=== PATIENT | male | born 1955 | race Caucasian/White ===

== ENCOUNTER 2018-05-12 13:43 | Inpatient (IN) ==
--- NOTE | 2018-05-12 16:26 | ED ---
HPI General Chief Complaint: Chest Pain Stated Complaint: Chest Pain Time Seen by Provider: 05/12/18 15:59 Source: patient and family Mode of arrival: ambulatory Limitations: no limitations History of Present Illness HPI narrative: Patient is a 63-year-old male, past medical history significant for hyperlipidemia, hypothyroidism, CAD with 2 previous stents placed approximately 7 years ago, who presents with complaint of chest pain over the last week. He states that for the last week he has had chest pain on exertion with dyspnea that improves with rest, which is exactly how he felt prior to having his stents placed. He also states that he has had some intermittent chest pain at rest now as well. No fever, chills, cough, congestion. No leg swelling or immobilization. No numbness nor weakness. MD complaint: chest pain STEMI Alert: No Onset (ago): hour(s) Duration: intermittent Onset: during exertion Pain location: substernal Severity: moderate Quality: heaviness Pain radiation: none Relieving factors: rest Exacerbating factors: exertion Associated symptoms: dyspnea Treatments prior to arrival chest pain: aspirin (81 mg) Related Data Home Medications Medication Instructions Recorded Confirmed levothyroxine 50 mcg PO DAILY 05/12/18 05/12/18 paroxetine HCl 10 mg PO HS 05/12/18 05/12/18 rosuvastatin 40 mg PO DAILY 05/12/18 05/12/18 Allergies Allergy/AdvReac Type Severity Reaction Status Date / Time No Known Allergies Allergy Unverified 05/12/18 15:51 Review of Systems ROS: all other systems reviewed are negative [facility] Medical History Medical History Depression (Acute) Hypercholesteremia (Acute) Hypothyroid (Acute) Surgical History Surgical History H/O heart artery stent (Acute) Hx of appendectomy (Acute) Social History Social History Substance History: No History of Abuse Second Hand Smoke Exposure: No Smoking Status: Former smoker How Often Do You Have a Drink Containing Alcohol: 4 or more times a week Recent Travel in [facility] within the Last 8 Weeks: No Recent Out of Country Travel within the Last 8 Weeks: No Immunization History Tetanus Immunization: >5 Years Hx Influenza Vaccine This Season: No Exam Narrative Exam Narrative: GENERAL: Well-appearing male in no acute distress SKIN: Focused skin assessment warm/dry. No rashes. HEAD: Atraumatic. Normocephalic. EYES: Pupils equal and round. No scleral icterus. No injection or drainage. ENT: No nasal bleeding or discharge. Mucous membranes pink and moist. NECK: Trachea midline. No JVD. CARDIOVASCULAR: Regular rate and rhythm. No murmur appreciated. Intact and equal peripheral pulses. RESPIRATORY: No accessory muscle use. Clear to auscultation. Breath sounds equal bilaterally. GASTROINTESTINAL: Abdomen soft, non-tender, nondistended. Hepatic and splenic margins not palpable. MUSCULOSKELETAL: No obvious deformities. No clubbing. No cyanosis. No edema. NEUROLOGICAL: Awake and alert. No obvious cranial nerve deficits. Motor grossly within normal limits. Normal speech. PSYCHIATRIC: Appropriate mood and affect; insight and judgment normal. Course Initial Documented Vital Signs Temperature 98.7 F 05/12/18 14:02 Pulse Rate 54 L 05/12/18 14:02 Respiratory Rate 18 05/12/18 14:02 Blood Pressure 139/80 05/12/18 14:02 Pulse Oximetry 100 05/12/18 14:02 Last Documented Vital Signs Temperature 98.7 F 05/12/18 14:02 Pulse Rate 50 L 05/12/18 18:07 Respiratory Rate 19 05/12/18 18:07 Blood Pressure 145/70 H 05/12/18 18:07 Pulse Oximetry 98 05/12/18 18:07 Medical Decision Making MDM Narrative Medical decision making narrative: Patient is a 63-year-old male who presents with complaints of chest pain with exertion over the last week that resolves with rest and occurs intermittently at rest as well. EKG shows some T-wave inversions and slight ST depressions in the inferior leads and I am unable to compare this to an old EKG. Labs, including initial troponin are unremarkable. I spoke to Dr Hurt, director business taxation accountant, whom recommended nitro paste and heparin drip (and NPO at midnight). I then spoke with Dr Baumann, hospitalist taxation accountant, whom agreed to admission. Medical Screen Exam Complete: Yes Emergency Medical Condition: Yes Differential Diagnosis Differential Diagnosis: Differential diagnosis includes but is not limited to NSTEMI, unstable angina, pneumothorax, pneumonia. Medical Records Medical records reviewed: Yes I reviewed the patient's medical records. Lab Data Lab results reviewed: Yes I reviewed the patient's lab results. Lab results narrative: Labs, including initial troponin, unremarkable. Result diagrams: 05/12/18 16:19 05/12/18 16:19 Lab Results 05/12/18 05/12/18 05/12/18 Range/Units 16:19 16: 16:19 WBC 7.3 (4.0-11.0) th/mm3 RBC 5.05 (4.50-5.90) mil/mm3 Hgb 14.8 (13.0-17.0) gm/dL Hct 44.8 (39.0-51.0) % MCV 88.6 (80.0-100.0) fL MCH 29.3 (27.0-34.0) pg MCHC 33.1 (32.0-36.0) % RDW 12.8 (11.6-17.2) % Plt Count 230 (150-450) th/mm3 MPV 8.2 (7.0-11.0) fL PT 10.0 (9.8-11.6) sec INR 1.0 Ratio APTT 27.4 (24.3-30.1) sec Sodium 143 (136-145) meq/L Potassium 3.8 (3.5-5.1) meq/L Chloride 108 H (98-107) meq/L Carbon Dioxide 27.8 (21.0-32.0) meq/L Anion Gap 7 (5-15) meq/L BUN 18 (7-18) mg/dL Creatinine 0.96 (0.60-1.30) mg/dL Estimated GFR 80 L (>89) mL/min Random Glucose 127 H (74-106) mg/dL Calcium 8.5 (8.5-10.1) mg/dL Troponin I Less than 0.02 L (0.02-0.05) ng/mL B-Natriuretic Peptide (0-100) pg/mL 05/12/18 Range/Units 16:19 WBC (4.0-11.0) th/mm3 RBC (4.50-5.90) mil/mm3 Hgb (13.0-17.0) gm/dL Hct (39.0-51.0) % MCV (80.0-100.0) fL MCH (27.0-34.0) pg MCHC (32.0-36.0) % RDW (11.6-17.2) % Plt Count (150-450) th/mm3 MPV (7.0-11.0) fL PT (9.8-11.6) sec INR Ratio APTT (24.3-30.1) sec Sodium (136-145) meq/L Potassium (3.5-5.1) meq/L Chloride (98-107) meq/L Carbon Dioxide (21.0-32.0) meq/L Anion Gap (5-15) meq/L BUN (7-18) mg/dL Creatinine (0.60-1.30) mg/dL Estimated GFR (>89) mL/min Random Glucose (74-106) mg/dL Calcium (8.5-10.1) mg/dL Troponin I (0.02-0.05) ng/mL B-Natriuretic Peptide 32 (0-100) pg/mL Imaging Data Attestation: I personally reviewed and interpreted this imaging study as follows : My impression: No acute cardiopulmonary process. Radiologist's impression: Chest X-Ray 05/12/18 16:13 CONCLUSION: Negative examination. ECG Data EKG Prior to Arrival: No Attestation: I personally reviewed and interpreted this ECG as follows: (Sinus bradycardia at a rate of 46 bpm. There are T-wave inversions in the inferior leads with slight ST depression in lead III and aVF.) Discharge Plan Discharge Disposition Patient Disposition: 30 Still Patient Discharge Condition Condition: Fair Discharge Details Diagnosis: Coronary artery disease involving [place] heart with unstable angina pectoris Physicians Team ED Provider: Talisha Santo Primary Care Provider: Primary Care Kathleen Cavazos Rxs /Orders / Referrals /Forms Prescriptions: No Action paroxetine HCl 20 mg Tablet 10 mg PO HS RF: 0 rosuvastatin 40 mg Tablet 40 mg PO DAILY RF: 0 levothyroxine 50 mcg Capsule 50 mcg PO DAILY RF: 0 Discharge Instructions Patient Printed Instructions: Chest Pain (ED) Status ED Status: With Doctor
--- NOTE | 2018-05-12 16:30 | XR ---
EXAM DATE: 05/12/2018 4:27 PM EDT AGE/SEX: 63 years / Male INDICATIONS: . Chest pain. CLINICAL DATA: This is the patient's initial encounter. Patient reports that signs and symptoms have been present for 1 week and indicates a pain score of 3/10. MEDICAL/SURGICAL HISTORY: Cardiovascular disease. . Cardiac stents. COMPARISON: No prior exams available for comparison. FINDINGS: PA and lateral views of the chest demonstrate the lungs to be symmetrically aerated without evidence of mass, infiltrate or effusion. The cardiomediastinal contours are unremarkable. Osseous structures are intact. CONCLUSION: Negative examination. Electronically signed by: Marvin Vail MD 05/12/2018 4:29 PM EDT
[2018-05-12 16:32] LABS: Hematocrit 44.8 % (39.0-51.0); Hemoglobin 14.8 gm/dL (13.0-17.0); Mean Corpuscular HGB Conc 33.1 % (32.0-36.0); Mean Corpuscular Hemoglobin 29.3 pg (27.0-34.0); Mean Corpuscular Volume 88.6 fL (80.0-100.0); Mean Platelet Volume 8.2 fL (7.0-11.0); Platelet Count 230 th/mm3 (150-450); Red Blood Count 5.05 mil/mm3 (4.50-5.90); Red Cell Distribution Width 12.8 % (11.6-17.2); White Blood Count 7.3 th/mm3 (4.0-11.0)
[2018-05-12 16:44] LABS: Activated Partial Thrombo Time 27.4 sec (24.3-30.1)
[2018-05-12 16:52] LABS: Anion Gap 7 meq/L (5-15); Calcium 8.5 mg/dL (8.5-10.1); Carbon Dioxide 27.8 meq/L (21.0-32.0); Chloride 108 meq/L (98-107); Glomerular Filtration Rate 80 mL/min (>89); Glucose,Random 127 mg/dL (74-106); Potassium 3.8 meq/L (3.5-5.1); Sodium 143 meq/L (136-145)
[2018-05-12 17:16] LABS: Blood Urea Nitrogen 18 mg/dL (7-18)
[2018-05-12] MEDS ORDERED: Morphine Inj 4 MG/ML Vial IV.PUSH ONE (17:55)
[2018-05-12] MEDS ORDERED: Heparin Drip 25,000 UNIT/250 ML BAG IV.CONT PRN (18:25)
[2018-05-12] MEDS ORDERED: Heparin 10,000 UNITS/10 ML Vial (for IV use) IV.PUSH STA (18:25)
--- NOTE | 2018-05-12 19:50 | P.HP ---
History of Present Illness Service: [facility] Primary Care Physician: No Primary Care Physician History of Present Illness: 63-year-old male with past medical history significant for coronary artery disease status post stent placement 2, hyperlipidemia and hypothyroidism presents to the emergency department for evaluation of chest pain. The patient reports the chest pain started approximately 1-1/2 weeks ago while he was cutting his lawn. He states he had to stop multiple times secondary to chest pain and shortness of breath. He describes the pain as a pressure/burning sensation that is substernal and radiates across to his chest and down his right arm. He denies fever/chills. No nausea/vomiting/diarrhea no lateralizing signs/symptoms. Inpatient Certification: I certify that the inpatient services were ordered in accordance with Medicare regulations governing the order. This includes certification that hospital inpatient services are reasonable and necessary and in the case of services not specified as inpatient-only under 42 CFR 419.22(n), that they are appropriately provided as inpatient services in accordance to with the 2-midnight benchmark under 43 CFR 412.3(e) Review of Systems All other systems reviewed negative except as stated in HPI PMFSH - History History Provided By: Patient - Medical History Medical History: Medical History (Last Reviewed 05/12/18 @ 16:43 by Talisha Santo MD) Depression Hypercholesteremia Hypothyroid - Surgical History Surgical History: Surgical History (Last Reviewed 05/12/18 @ 16:43 by Talisha Santo MD) H/O heart artery stent Hx of appendectomy - Family History Family History: Family History (Last Updated 05/12/18 @ 19:48 by Kimberly Sawant MD) Other Coronary artery disease Hypertension - Tobacco History Second Hand Smoke Exposure: No Tobacco Use In Past 30 Days: No Smoking Status: Former smoker - Alcohol History How Often Do You Have a Drink Containing Alcohol: 4 or more times a week - Substance Use History Substance History: No History of Abuse - Travel History Recent Travel in the [place] Within the Last 8 Weeks: No Recent Travel Out of the Country Within the Last 8 Weeks: No - Immunization History Tetanus Immunization: >5 Years Hx Influenza Vaccine This Season: No Medications and Allergies Active Medications: Active Medications Heparin Sodium (Porcine) (Heparin Inj) 2,500 units IV.PUSH UNSCH PRN PRN Reason: aPTT 25-39 Heparin Sodium/Dextrose (Heparin/D5w 25,000 U/250 Ml) 25,000 unit in 250 mls @ 0 mls/hr IV.CONT TITRATE PRN; Protocol PRN Reason: Per Protocol Last Admin: 05/12/18 18:43 Dose: 1,000 units/hr, 10 mls/hr Sodium Chloride (Ns Flush) 2 ml IV.FLUSH UNSCH PRN PRN Reason: FLUSH AFTER USING IV ACCESS Allergies Allergy/AdvReac Type Severity Reaction Status Date / Time No Known Allergies Allergy Unverified 05/12/18 15:51 Home Medications Medication Instructions Recorded Confirmed Type levothyroxine 50 mcg PO DAILY 05/12/18 05/12/18 History paroxetine HCl 10 mg PO HS 05/12/18 05/12/18 History rosuvastatin 40 mg PO DAILY 05/12/18 05/12/18 History Exam Vital signs: Vital Signs 05/12/18 14:02 05/12/18 15:55 05/12/18 15:56 Temperature 98.7 F Pulse Rate 54 L 53 L Respiratory Rate 18 17 Blood Pressure 139/80 170/88 H Pulse Oximetry 100 99 05/12/18 16:32 05/12/18 16:46 05/12/18 18:07 Temperature Pulse Rate 48 L 50 L Respiratory Rate 24 19 Blood Pressure 121/65 145/70 H Pulse Oximetry 98 98 98 05/12/18 19:35 Temperature Pulse Rate 49 L Respiratory Rate 16 Blood Pressure 169/73 H Pulse Oximetry Intake & Output 05/12/18 05/12/18 05/13/18 06:59 18:59 06:59 Weight 74.843 kg Narrative: Gen.: No acute distress Head: Normocephalic. Atraumatic. EENT: Pupils equal round and reactive to light. Nose without drainage. Airway intact. Throat without injection. Cardiovascular: Regular rate and rhythm. No murmurs, rubs or gallops. Respiratory: Lungs clear to auscultation bilaterally. No wheezes or rhonchi. Abdomen: Soft, nontender, nondistended. No peritoneal signs. Musculoskeletal: No gross deformities. No edema. Skin: No obvious rashes or erythema. Neuro: Sensory and motor grossly intact. Cranial nerves II through XII grossly intact. Results - Labs CBC & Chem 7: 05/12/18 16:19 05/12/18 16:19 Labs: Laboratory Results - last 24 hr 05/12/18 05/12/1818 16:19 16:19 16:19 WBC 7.3 RBC 5.05 Hgb 14.8 Hct 44.8 MCV 88.6 MCH 29.3 MCHC 33.1 RDW 12.8 Plt Count 230 MPV 8.2 PT 10.0 INR 1.0 APTT 27.4 Sodium 143 Potassium 3.8 Chloride 108 H Carbon Dioxide 27.8 Anion Gap 7 BUN 18 Creatinine 0.96 Estimated GFR 80 L Random Glucose 127 H Calcium 8.5 Troponin I Less than 0.02 L B-Natriuretic Peptide 05/12/18 16:19 WBC RBC Hgb Hct MCV MCH MCHC RDW Plt Count MPV PT INR APTT Sodium Potassium Chloride Carbon Dioxide Anion Gap BUN Creatinine Estimated GFR Random Glucose Calcium Troponin I B-Natriuretic Peptide 32 - Imaging Impressions Chest X-Ray 05/12/18 16:13 CONCLUSION: Negative examination. Caprini VTE Risk Assessment Caprini VTE Risk Assessment: Moderate/High Risk (score >= 2) Caprini Risk Assessment Model: Point Value = 1 Point Value = 2 Point Value = 3 Point Value = 5 Age 41-60 Minor surgery BMI > 25 kg/m2 Swollen legs Varicose veins or History of unexplained or recurrent spontaneous Oral contraceptives or hormone replacement Sepsis (< 1 month) Serious lung disease, including pneumonia (< 1 month) Abnormal pulmonary function Acute myocardial infarction Congestive heart failure (< 1 month) History of inflammatory bowel disease Medical patient at bed rest Age 61-74 Arthroscopic surgery Major open surgery (> 45 min) Laparoscopic surgery (> 45 min) Malignancy Confined to bed (> 72 hours) Immobilizing plaster cast Central venous access Age >= 75 History of VTE Family history of VTE Factor V Leiden Prothrombin [id number] Lupus anticoagulant Anticardiolipin antibodies Elevated serum homocysteine Heparin-induced thrombocytopenia Other congenital or acquired thrombophilia Stroke (< 1 month) Elective arthroplasty Hip, pelvis, or leg fracture Acute spinal cord injury (< 1 month) Prophylaxis Regimen: Total Risk Factor Score Risk Level Prophylaxis Regimen 0-1 Low Early ambulation 2 Moderate Order ONE of the following: *Sequential Compression Device (SCD) *Heparin 5000 units SQ BID 3-4 Higher Order ONE of the following medications: *Heparin 5000 units SQ TID *Enoxaparin/Lovenox 40 mg SQ daily (WT < 150 kg, CrCl > 30 mL/min) *Enoxaparin/Lovenox 30 mg SQ daily (WT < 150 kg, CrCl > 10-29 mL/min) *Enoxaparin/Lovenox 30 mg SQ BID (WT < 150 kg, CrCl > 30 mL/min) AND/OR *Sequential Compression Device (SCD) 5 or more Highest Order ONE of the following medications: *Heparin 5000 units SQ TID (Preferred with Epidurals) *Enoxaparin/Lovenox 40 mg SQ daily (WT < 150 kg, CrCl > 30 mL/min) *Enoxaparin/Lovenox 30 mg SQ daily (WT < 150 kg, CrCl > 10-29 mL/min) *Enoxaparin/Lovenox 30 mg SQ BID (WT < 150 kg, CrCl > 30 mL/min) AND *Sequential Compression Device (SCD) Assessment and Plan - Plan Assessment/plan: 1. Unstable angina EKG negative for ST segment elevations or depressions, personally reviewed Initial troponin negative ACS rule out pending; serial troponins/EKGs Heparin drip Nitro Cardiology consulted, appreciate recommendations 2. Coronary artery disease/hyperlipidemia Continue home medication FEN N.p.o. Electrolytes: Monitor and replete as needed Heparin drip
[2018-05-12 23:44] LABS: Creatine Kinase 56 U/L (39-308)
[2018-05-13 00:03] LABS: Activated Partial Thrombo Time 57.6 sec (24.3-30.1); Prothrombin Time 10.5 sec (9.8-11.6)
[2018-05-13] MEDS ORDERED: Heparin 10,000 UNITS/10 ML Vial (for IV use) IV.PUSH PRN (00:26)
[2018-05-13] MEDS ORDERED: Morphine Inj 4 MG/ML Vial IV.PUSH ONE (01:11)
[2018-05-13 04:56] LABS: Baso % (Auto) 0.4 % (0.0-2.0); Eos # (Auto) 0.2 th/mm3 (0.0-0.4); Eos % (Auto) 2.5 % (0.0-4.0); Hematocrit 43.8 % (39.0-51.0); Hemoglobin 14.6 gm/dL (13.0-17.0); Lymph # (Auto) 2.5 th/mm3 (1.0-4.8); Lymph % (Auto) 31.9 % (9.0-44.0); Mean Corpuscular HGB Conc 33.4 % (32.0-36.0); Mean Corpuscular Hemoglobin 29.5 pg (27.0-34.0); Mean Corpuscular Volume 88.3 fL (80.0-100.0); Mean Platelet Volume 8.5 fL (7.0-11.0); Mono # (Auto) 0.6 th/mm3 (0.0-0.9); Mono % (Auto) 7.4 % (0.0-8.0); Neut # (Auto) 4.5 th/mm3 (1.8-7.7); Neut % (Auto) 57.8 % (16.0-70.0); Platelet Count 211 th/mm3 (150-450); Red Blood Count 4.96 mil/mm3 (4.50-5.90); Red Cell Distribution Width 13.4 % (11.6-17.2); White Blood Count 7.7 th/mm3 (4.0-11.0)
[2018-05-13 05:24] LABS: Anion Gap 7 meq/L (5-15); Blood Urea Nitrogen 16 mg/dL (7-18); Calcium 8.6 mg/dL (8.5-10.1); Carbon Dioxide 27.7 meq/L (21.0-32.0); Chloride 108 meq/L (98-107); Glomerular Filtration Rate 86 mL/min (>89); Glucose,Random 96 mg/dL (74-106); Potassium 3.6 meq/L (3.5-5.1); Sodium 143 meq/L (136-145)
[2018-05-13 05:41] LABS: Creatine Kinase 56 U/L (39-308)
[2018-05-13] MEDS: Levothyroxine 50 MCG Tablet PO SCH (06:45)
--- NOTE | 2018-05-13 07:49 | ECG ---
Date Performed: 05/12/2018 Time Performed: 14:11:44 PTAGE: 63 years EKG: SINUS BRADYCARDIA NONSPECIFIC T-WAVE ABNORMALITY BORDERLINE ECG Since the PREVIOUS TRACING , no significant change noted DOCTOR: Raymond Aponte Interpretating Date/Time 05/13/2018 07:48:09
--- NOTE | 2018-05-13 07:49 | ECG ---
Date Performed: 05/12/2018 Time Performed: 16:29:23 PTAGE: 63 years EKG: SINUS BRADYCARDIA ST DEVIATION AND MODERATE T-WAVE ABNORMALITY, CONSIDER INFERIOR ISCHEMIA ABNORMAL ECG PREVIOUS TRACING : 05/12/2018 14.11 Since the previous tracing, no significant change noted DOCTOR: Raymond Aponte Interpretating Date/Time 05/13/2018 07:48:18
[2018-05-13] MEDS ORDERED: diazePAM 5 MG Tablet PO SCH (08:15)
[2018-05-13] MEDS ORDERED: Heparin/NS PF Inj 1,500 ML ONE (08:31)
[2018-05-13] MEDS ORDERED: Heparin 10,000 UNITS/10 ML Vial (for IV use) ONE (08:32)
[2018-05-13] MEDS ORDERED: fentaNYL Citrate Inj 100 MCG/2 ML Ampul ONE (08:32)
[2018-05-13] MEDS: Sod Chloride 0.9% Inj 1,000 ML IV.CONT SCH ×4 (09:00→17:44)
[2018-05-13] MEDS ORDERED: Acetaminophen 325 MG Tablet PO PRN (10:17)
[2018-05-13] MEDS ORDERED: Morphine Inj 4 MG/ML Vial IV.PUSH PRN (10:17)
[2018-05-13] MEDS ORDERED: oxyCODONE/Acetaminophen 10/325 Tablet PO PRN (10:17)
[2018-05-13] MEDS ORDERED: Misc Info for Pharmacy OTHER STA (10:17)
--- NOTE | 2018-05-13 10:24 | MB ---
cc: Canelo Harris MD DATE: 05/13/2018 REASON FOR CONSULTATION: Evaluation of unstable angina. HISTORY OF PRESENT ILLNESS: Ji Angel is a 63-year-old man who has known coronary artery disease. He has had a prior stent procedures 08/05/2012. He had a cardiac catheterization showing 95% proximal LAD, 80% proximal to mid right coronary artery and 50% circumflex disease. He had a 3.5 mm x 33 mm Xience stent inserted into the proximal LAD at 13 atmospheres and a 3.0 mm x 38 mm Xience stent in the right coronary artery at 12 atmospheres. I last saw him in the office 11/12/2015. He has not been compliant with followup. He has been seeing his primary care physician, Dr. Camelia Velez in [place]. He started having chest pain a week and a half ago while mowing his lawn. It was so severe he had to stop 4 times to finish mowing the lawn. It has been associated with sweating and a feeling of his heart beating hard. He has had it recur with any type of physical exertion. Finally, called the office and had gotten so far as to get blood work and an echo done, but before his appointment decided to come to the hospital and he has been admitted. PAST MEDICAL HISTORY: Includes depression, hyperlipidemia, hypothyroidism, coronary artery disease. PAST SURGICAL HISTORY: Includes appendectomy catheterization and stent procedures, right shoulder rotator cuff repair 2 years ago. MEDICATIONS: Include: 1. Aspirin 81 mg. 2. Crestor 20 mg. 3. Here, he has been also added on nitroglycerin ointment. ALLERGIES: NONE KNOWN. FAMILY HISTORY: Positive for breast cancer in his mother, cerebral hemorrhage in the father, hypertension in mother and sister and myocardial infarction in the maternal grandfather. SOCIAL HISTORY: Notable that he is retired. He is . He smoked from age 23 at age 58 off and on. REVIEW OF SYSTEMS: Notable for nausea. Remaining review of systems is negative. Specifically, he has had no bleeding of any kind. PHYSICAL EXAMINATION: GENERAL: Well-developed, well-nourished man in no acute distress. VITAL SIGNS: Charted. HEENT: Unremarkable. NECK: No JVD. No bruits. CHEST: Clear to auscultation. CARDIOVASCULAR: Normal S1, S2. He is bradycardic; regular rhythm. No murmur. ABDOMEN: Soft, nontender. No masses or organomegaly. EXTREMITIES: No clubbing, cyanosis or edema. Pulses are intact. DIAGNOSTIC DATA: 1. On his electrocardiogram shows sinus bradycardia and T-wave abnormality inferolaterally suggesting possible ischemia; these T-wave abnormalities are new from his old office visits. 2. He had an echo Doppler study in my office 05/10/2018. This shows normal left ventricular function, trivial mitral regurgitation, otherwise no valve disease. 3. His last nuclear stress test was 2015, which was normal. LABORATORY DATA: 1. CBC is normal. Chemistries: His creatinine is 0.9. His troponins are negative x3. 2. His lab work from my office was notable for an elevated LDL. I do not have the numbers in front of me, but by recollection, his LDL was 101. CONCLUSIONS: 1. Unstable angina pectoris with known coronary artery disease. 2. History of hyperlipidemia, not optimally controlled. 3. History of noncompliance with followup office visits. PLAN: The patient's symptoms sound unstable. There is no evidence for infarction, but I think we should go directly to cardiac catheterization. Informed consent has been obtained. He is n.p.o. We will plan to do a cardiac catheterization this morning with possible intervention depending the findings. MD LUCAS Ndiaye/mariella , 08:05 AM , 08:15 AM
--- NOTE | 2018-05-13 10:25 | CATHPROC ---
[employer] HIS Report Study Information Study Number Admission Scheduled Start Study Start [id number] May 12 2018 6:39PM 05/13/2018 May 13 2018 8:17AM [place] Service Cardiac Pacer/ICD Admit Source Facility Department Other [facility] - Early Intervention Specialist Physician and Clinical Staff Initial MD Harris, Canelo Nuclear Scientist Jose Calles,RN Recorder Zenia Workman,MOLD MECHANIC TECH2 Scrub Sylvia Crowder RCIS TECH2 Procedures Performed Procedure Location (Site) Vessel Name Angiogram LV LV Ventricle Coronary Angiograms LCA Left Coronary Coronary Angiograms RCA Right Coronary Drug Eluting Inflatio CIRC Dist CIRC Drug Eluting Inflatio CIRC Prox CIRC L Heart Cath Wire insertion Groin (right) Groin Equipment Time Fire Services Plumber Description Size Mfg Part Number Used/Scraped TRANSDUCER, NATALYA [id number] 08:17 RODRIGUEZ DE LUNA * Used W/CONNORCOCK *[id number] INTRODUCER SET, 09:15 [employer] FR 5 [id number] *[id number] Used MICROPUNCTURE STIFF 534-676T *[id number] 534-620T *[id number] PIGTAIL ANG. 145 INFINITI 534-652S CATHETER *[id number] *[id number] *[id number] 201340 09:58 DAIG/ST. BRIE [employer]ICAL ANGIOSEAL, FR6 VIP FR 6 Used *[id number] 09:31 MALLINCKRODT SYRINGE, ANGIOMAT 150ML 150ML *[id number] Used 2SUB [id number] 08:17 MALLINCKRODT SYRINGE, ANGIOMAT 150ML 150ML *[id number] Used 2SUB [id number] 08:17 Zeebo BLANKET,WARM AIR CCL * Used *[id number] 08:17 [employer]eebo PACK, CCL CUSTOM * Used *[id number] 08:17 Zeebo SUPPORT, ARTERIAL ADULT 17889 *[id number] Used [id number] 08:17 [employer] PACER PEN, SKIN DUAL W/ RULER * Used *[id number] 09:42 MEDTRONIC STENT, 3.0 15MM PIERCE 3.0 15MM Used *[id number] 09:49 MEDTRONIC STENT, 3.0 26MM PIERCE 3.0 26MM Used *[id number] 09:44 Copious 30 LAURYN INDEFLATOR Used *[id number] BAND, RADIAL COMPRESSION TR [id number] 10:03 [employer]ender MEDICAL 24CM Used SHORT 24 *[id number] 09:16 Copious SHEATH, FR6.5 PRELUDE 11CM FR 6.5 038ACT Used *[id number] 08:17 [employer]ious WIRE, EXCHANGE 260CM 3MMJ 260CM Used *[id number] 08:17 NAMIC MANIFOLD, 4 PORT * Used *[id number] [id number] 09:30 NAMIC TUBING, HIGH PRESSURE 20" 20" Used *[id number] 09:23 NYCOMED OMNIPAQUE, 300 MG, 50ML 50ML [id number] Used 08:17 NYCOMED OMNIPAQUE, 350 MG, 100ML 100ML [id number] Used 08:17 Koding JELCO NEEDLE 4056 *[id number] Used CATHETER, FR5 OPTITORQUE [id number] 08:59 [email or web address] MEDICAL FR 5 Used RADIAL TIG 4.0 *[id number] SHEATH, FR6 TRANSRADIAL [id number] 08:17 [employer] FR 6 Used SLENDER 10CM *[id number] Equipment Model, Serial, Lot Number and Expiration Data Description Model Number Serial Number Lot Number Expiration Date ANGIOSEAL, FR6 VIP [id number] 09-29-2018 STENT, 3.0 15MM PIERCE [id number] 11-26-2019 STENT, 3.0 26MM PIERCE [id number] 10-06-2019 History: Current Medications Medication Dosage/Unit Route Frequency Last Date/Time Taken ASA Paxil Synthroid History: Allergies Allergy Reaction No Known Allergies History: Risk Factors Family History of Hypertension Dyslipidemia Previous VA Previous Heart Failure Premature CAD Yes Yes Yes No No Prior Valve Prior PCI Prior PCIDate Prior CABG Surgery No Yes 08/05/2012 No Cerebrovascular Peripheral Artery Chronic Lung On Dialysis Diabetes Disease Disease Disease No No No No No History: Other Current Smoker Method Quit No Cigarettes 42 Years Ago Comment 1/4 PACK X 2 Labs Hgb (g/dl) Hct (%) RBC (MIL/MM3) WBC (l/cumm) Platelets (thousands) 11.60-17.00 35.00-51.00 4.00-5.90 4.00-11.00 150.00-450.00 14.6 43.8 5 7.7 143 BUN (mg/dl) Creatinine (mg/dl) BUN:Creatinine (1:x) 7.00-18.00 0.50-1.30 10.00-20.00 16 0.9 17.8 Na (meq/l) K (meq/l) 136.00-145.00 3.50-5.10 143 3.6 PT (sec) PTT (sec) INR (PTT:PT) 9.80-11.60 24.30-30.10 0.90-1.10 10.5 45.6 1 CPK (u/l) 26.00-308.00 56 Medication Medication Total Dose (Bolus/Oral) Medication Total Dosage/Unit 1% XYLOCAINE 25 mL ANGIOMAX BOLUS 14 mL EFFIENT 60 mg FENTANYL 100 mcg MORPHINE 3 mg NITRO OINTMENT 0.5 inches NTG (IC) 300 mcg RADIAL COCKTAIL 5 mL (Bolus) VERSED 3 mg Medications (Bolus/Oral) Medication Time Given Dosage/Unit Administered By Reason NITRO OINTMENT 05/13/2018 8:25:31 AM 0.5 inches Canelo Harris 0.5 inches NITRO OINTMENT given in lab by Canelo Harris via Subcutaneous. Ordered by Canelo Harris. VERSED 05/13/2018 9:02:04 AM 2 mg Stevan, Jose 2 mg VERSED given in lab by Jose Calles, RN in Right Antecubital via Peripheral IV. Ordered by Canelo Lane. FENTANYL 05/13/2018 9:03:00 AM 50 mcg Stevan, Jose 50 mcg FENTANYL given in lab by Jose Calles RN in Right Antecubital via Peripheral IV. Ordered by Canelo Mckeon. 1% XYLOCAINE 05/13/2018 9:04:03 AM 5 mL Canelo Harris 5 mL 1% XYLOCAINE given in lab by Canelo Harris in Right Radial via Subcutaneous. Ordered by Canelo Harris. RADIAL COCKTAIL 05/13/2018 9:06:00 AM 5 mL (Bolus) Canelo Harris 5 mL (Bolus) RADIAL COCKTAIL given in lab by Canelo Harris via Radial. Using [Solution Name]. Ordered by Canelo Harris. 200 NITRO,2500 HEPARIN 1% XYLOCAINE 05/13/2018 9:14:54 AM 20 mL Canelo Harris 20 mL 1% XYLOCAINE given in lab by Canelo Harris in Right Groin via Subcutaneous. Ordered by Canelo Harris. VERSED 05/13/2018 9:15:14 AM 1 mg Stevan, Jose 1 mg VERSED given in lab by Jose Calles RN in Right Antecubital via Peripheral IV. Ordered by Canelo Lane. FENTANYL 05/13/2018 9:16:25 AM 50 mcg Stevan, Jose 50 mcg FENTANYL given in lab by Jose Calles RN in Right Antecubital via Peripheral IV. Ordered by Canelo Mckeon. ANGIOMAX BOLUS 05/13/2018 9:40:56 AM 14 mL Jose Calles 14 mL ANGIOMAX BOLUS given in lab by Jose Calles RN via Peripheral IV. Ordered by Canelo Harris. NTG (IC) 05/13/2018 9:46:23 AM 150 mcg Canelo Harris 150 mcg NTG (IC) given in lab by Canelo Harris via Intra-coronary. Ordered by Canelo Harris. NTG (IC) 05/13/2018 9:53:12 AM 150 mcg Canelo Harris 150 mcg NTG (IC) given in lab by Canelo Harris via Intra-coronary. Ordered by Canelo Harris. MORPHINE 05/13/2018 10:01:16 AM 3 mg Stevan, Jose 3 mg MORPHINE given in lab by Jose Calles RN via Peripheral IV. Ordered by Canelo Harris. EFFIENT 05/13/2018 10:05:19 AM 60 mg Stevan, Jose 60 mg EFFIENT given in lab by Jose Calles RN via Oral. Ordered by Canelo Harris. Medication (Drip) Medication Time Given Dosage/Unit Concentration/Unit Diluent (ml) Solution ANGIOMAX DRIP 05/13/2018 9:42:54 AM 1.755 mg/kg/hr 250 mg 50 NaCl .9 1.755 mg/kg/hr ANGIOMAX DRIP given in lab by Jose Calles RN via Peripheral IV. Pump/Drip Flow = 33. 2 ml/hr using NaCl .9 with a concentration of 250 mg in 50 ml. Ordered by Canelo Harris. HEPARIN DRIP 05/13/2018 8:26:41 AM 1000 units/hr 38889 units 250 D5W Patient arrived on 1000 units/hr HEPARIN DRIP given by Canelo Harris in Right Antecubital via Periphe ral IV. Pump/Drip Flow = 10 ml/hr [place] D5[place] a [place] [address] units in 250 ml. Ordered by Canelo Harris. Initial Case Assessment Cardiovascular NIBP 165/82 Edema Present Skin color Skin None Normal Warm Dry Circulatory - Right Pulses Dorsalis Pedis Femoral Radial 3 3 3 Scale (0,1,2,3,4,d) Circulatory - Left Pulses Dorsalis Pedis Femoral Radial 3 3 Scale (0,1,2,3,4,d) Neurological State Oriented to time-place- Alert Moves all extremities person Respiration - General Respiration Rate SpO2 (%) (B/min) 15 97 Chronological Log Time Study Chronological Log 8:20:11 Patient arrived via Bed. 8:20:12 Patient Name, D.O.B, / Armband Verified By R.N. 8:20:14 Consent signed by the physician and the patient and verified by the Early Intervention Specialist staff. 8:25:31 0.5 inches NITRO OINTMENT given in lab by Canelo Harris via Subcutaneous. Ordered by Canelo Harris. 8:26:31 Allens test performed on the right radial and ulnar artery. 8:26:34 Patient has been NPO for More than 6Hrs. 8:26:35 NO Skin Breakdown- 8:26:36 Patient Warmer Placed on the Table. 8:26:37 Rodriguez Prominences Protected 8:26:40 A # 20 IV was noted in the Antecubital (right). Grade = 0 Patient arrived on 1000 units/hr HEPARIN DRIP given by Canelo Harris in Right Antecubital via P eripheral IV. 8:26:41 Pump/Drip Flow = 10 ml/hr [place] [address] units in 250 ml. Ordered by Canelo Mckeon. 8:26:42 History and physical on the chart or being dictated. Vitals capture started with the following parameters, Patient=Adult, Interval=3 min, Initial Pr gwuugr=570 mmHg, 8:29:19 Deflation Rate=5 mmHg, Cuff placed on Left Arm Assessment: Initial Case, YYIZ=007/82 mmhg, Edema=None, Color=Normal, Skin = Warm, Dry Right Pulses: Tho Ped=3, Femoral=3, Radial=3 8:30:29 Left Pulses: Tho Ped=3, Femoral=3 Neurological: State=Alert, Ox3, DUMONT Respiration: Resp=15 B/min, SpO2=97 % 8:30:38 HR=39 bpm, XCQI=286/82 mmhg, SpO2=98.0 %, Resp=15 B/min, Pain=0, Vee=10, Jones=2 8:31:33 Reference ECG taken 8:33:03 HR=41 bpm, INXE=347/81 mmhg, SpO2=97.0 %, Resp=11 B/min, Pain=0, Vee=10, Jones=2 8:36:03 HR=42 bpm, WKDT=370/80 mmhg, SpO2=99.0 %, Resp=16 B/min, Pain=0, Vee=10, Jones=2 8:39:49 HR=38 bpm, ZUED=703/80 mmhg, SpO2=99.0 %, Resp=12 B/min, Pain=0, Vee=10, Jones=2 8:42:00 HR=42 bpm, XSTK=374/83 mmhg, SpO2=97.0 %, Resp=13 B/min, Pain=0, Vee=10, Jones=2 8:45:02 HR=45 bpm, ZNMV=797/81 mmhg, SpO2=98.0 %, Resp=11 B/min, Pain=0, Vee=10, Jones=2 8:46:22 Pressure channel 1 zeroed. 8:48:49 HR=43 bpm, RLUD=992/74 mmhg, SpO2=99.0 %, Resp=8 B/min, Pain=0, Vee=10, Jones=2 8:50:50 HR=44 bpm, YSGU=171/80 mmhg, SpO2=96.0 %, Resp=10 B/min, Pain=0, Vee=10, Jones=2 8:53:54 HR=43 bpm, ZYMA=159/72 mmhg, SpO2=98.0 %, Resp=13 B/min, Pain=0, Vee=10, Jones=2 8:56:51 HR=47 bpm, BJGC=864/78 mmhg, SpO2=95.0 %, Resp=16 B/min, Pain=0, Vee=10, Jones=2 9:00:40 HR=45 bpm, ZHDE=399/79 mmhg, SpO2=98.0 %, Resp=10 B/min, Pain=0, Vee=10, Jones=2 9:02:04 2 mg VERSED given in lab by Jose Calles, RN in Right Antecubital via Peripheral IV. Ordered by Canelo Harris. Time Out. Correct patient, correct procedure, correct physician, labs, allergies, and equipment verified with medical lab technologist 9:02:15 team present. Fire risk assesment completed (see hard stop sheet for coding). Time Out Concu rred by MD and individual staff in procedure. LV INJECTOR LOADED AND VERIFIED TO BE FREE OF AIR 9:02:25 Case Start 9:03:00 50 mcg FENTANYL given in lab by Jose Calles, RN in Right Antecubital via Peripheral IV. Ord ered by Canelo Harris. 9:03:01 HR=43 bpm, UGYX=870/76 mmhg, SpO2=97.0 %, Resp=11 B/min, Pain=0, Vee=10, Jones=2 9:04:03 5 mL 1% XYLOCAINE given in lab by Canelo Harris in Right Radial via Subcutaneous. Ordered by Canelo Harris. 9:05:57 HR=45 bpm, ZPTV=631/67 mmhg, SpO2=92 %, Resp=12 B/min, Pain=0, Vee=10, Jones=2 5 mL (Bolus) RADIAL COCKTAIL given in lab by Canelo Harris via Radial. Using [Solution Name]. Or dered by Steven 9:06:00 Canelo. 200 NITRO,2500 HEPARIN 9:06:38 Access site was Right Radial Artery . A SHEATH, FR6 TRANSRADIAL SLENDER 10CM FR 6 was advanced into the Radial (right) using the Modif jovanna Seldinger 9:06:51 technique. A CATHETER, FR5 OPTITORQUE RADIAL TIG 4.0 FR 5 was advanced over a wire. OMNIPAQUE, 350 MG, 100M L 100ML 9:07:58 was used for injections. 9:08:54 HR=45 bpm, JKFQ=655/64 mmhg, SpO2=93.0 %, Resp=10 B/min, Pain=0, Vee=10, Jones=2 9:11:56 HR=44 bpm, RMWC=682/62 mmhg, SpO2=92.0 %, Resp=10 B/min, Pain=0, Vee=10, Jones=2 9:13:26 Catheter was removed 9:14:54 20 mL 1% XYLOCAINE given in lab by Canelo Harris in Right Groin via Subcutaneous. Ordered by Canelo Harris. 9:14:58 HR=42 bpm, NEPP=292/67 mmhg, SpO2=93.0 %, Resp=14 B/min, Pain=0, Vee=10, Jones=2 9:15:14 1 mg VERSED given in lab by Jose Calles RN in Right Antecubital via Peripheral IV. Ordered by Canelo Harris. 9:16:25 50 mcg FENTANYL given in lab by Jose Calles RN in Right Antecubital via Peripheral IV. Ord ered by Canelo Harris. A INTRODUCER SET, MICROPUNCTURE STIFF FR 5 was advanced into the Fem Art (right) using the ~TECH NIQUE~ 9:17:07 technique. A INTRODUCER SET, MICROPUNCTURE STIFF FR 5 was exchanged in the Fem Art (right). This was necess lukas in order 9:17:22 for catheter support. 9:17:37 HEPARIN DISCONTINUE 9:17:58 HR=41 bpm, HQRS=077/58 mmhg, SpO2=95.0 %, Resp=14 B/min, Pain=0, Vee=10, Jones=2 A PIGTAIL ANG. 145 INFINITI CATHETER FR 6 was advanced over a wire. OMNIPAQUE, 350 MG, 100ML 100 ML was 9:19:26 used for injections. Recorded Pressure: LV, HR=42, Condition=Condition 1 9:20:13 (Left Ventricle) LV 100/2/10 9:20:57 HR=41 bpm, LHKQ=732/57 mmhg, SpO2=94.0 %, Resp=13 B/min, Pain=0, Vee=10, Jones=2 9:22:20 The LV was injected at 10 cc/sec for a total of 20. OMNIPAQUE, 300 MG, 50ML 50ML used. Recorded Pressure: LV, Ao, HR=44, Condition=Condition 1 9:23:03 (Left Ventricle) LV 89/0/6, (Aorta) Ao 100/55/74 9:23:17 Catheter was removed A JL 4.0 INFINITI CATHETER FR 6 was advanced over a wire. OMNIPAQUE, 350 MG, 100ML 100ML was use d for 9:23:25 injections. 9:23:55 HR=42 bpm, LEST=479/60 mmhg, SpO2=93 %, Resp=12 B/min, Pain=0, Vee=10, Jones=2 Recorded Pressure: Ao, HR=44, Condition=Condition 1 9:24:40 (Aorta) Ao 107/57/78 9:25:16 The LCA was injected and visualized at various angles. OMNIPAQUE, 350 MG, 100ML 100ML used. 9:26:57 HR=40 bpm, WTBZ=458/65 mmhg, SpO2=94.0 %, Resp=12 B/min, Pain=0, Vee=10, Jones=2 9:27:31 Catheter was removed A 3DRC INFINITI CATHETER FR 6 was advanced over a wire. OMNIPAQUE, 350 MG, 100ML 100ML was used for 9:27:54 injections. 9:29:30 The RCA was injected and visualized at various angles. OMNIPAQUE, 350 MG, 100ML 100ML used. 9:30:44 Catheter was removed 9:30:46 HR=44 bpm, FIJN=721/66 mmhg, SpO2=92.0 %, Resp=12 B/min, Pain=0, Vee=10, Jones=2 9:31:38 Activated Clotting Time Drawn 9:32:57 HR=42 bpm, ASUO=466/69 mmhg, SpO2=93.0 %, Resp=13 B/min, Pain=0, Vee=10, Jones=2 9:35:04 ACT (Normal Range 90-180) = 188 A XB 3.5 GUIDE CATHETER FR 6 was advanced over a wire. OMNIPAQUE, 350 MG, 100ML 100ML was used f or 9:35:27 injections. 9:36:00 HR=42 bpm, VOOD=274/67 mmhg, SpO2=95.0 %, Resp=11 B/min, Pain=0, Vee=10, Jones=2 9:38:26 A WIRE, ATW MARKER 195CM 195CM was inserted via Groin (right). 9:39:00 HR=42 bpm, PTVA=229/57 mmhg, SpO2=96.0 %, Resp=13 B/min, Pain=0, Vee=10, Jones=2 9:40:56 14 mL ANGIOMAX BOLUS given in lab by Jose Calles, RN via Peripheral IV. Ordered by Canelo Harris. 9:41:58 HR=42 bpm, BNRJ=868/67 mmhg, SpO2=95.0 %, Resp=11 B/min, Pain=0, Vee=10, Jones=2 1.755 mg/kg/hr ANGIOMAX DRIP given in lab by Jose Calles, RN via Peripheral IV. Pump/Drip Flow = 33.2 ml/hr 9:42:54 using NaCl .9 with a concentration of 250 mg in 50 ml. Ordered by Canelo Harris. A STENT, 3.0 15MM PIERCE 3.0 15MM was advanced through a XB 3.5 GUIDE CATHETER FR 6 over a WIRE, A TW 9:43:04 MARKER 195CM 195CM. A STENT, 3.0 15MM PIERCE 3.0 15MM was deployed using a 30 LAURYN INDEFLATOR at 16 atmospheres for 30 seconds in 9:43:57 the CIRC Dist. 9:45:00 HR=40 bpm, WFYK=185/71 mmhg, SpO2=96.0 %, Resp=10 B/min, Pain=0, Vee=10, Jones=2 9:45:39 Delivery device removed 9:46:23 150 mcg NTG (IC) given in lab by Canelo Harris via Intra-coronary. Ordered by Canelo Harris. 9:48:05 HR=41 bpm, ASXS=672/64 mmhg, SpO2=92.0 %, Resp=13 B/min, Pain=0, Vee=10, Jones=2 A STENT, 3.0 26MM PIERCE 3.0 26MM was advanced through a XB 3.5 GUIDE CATHETER FR 6 over a WIRE, A TW 9:48:51 MARKER 195CM 195CM. A STENT, 3.0 26MM PIERCE 3.0 26MM was deployed using a 30 LAURYN INDEFLATOR at 16 atmospheres for 30 seconds in 9:51:29 the CIRC Prox. 9:51:44 HR=40 bpm, SLST=132/69 mmhg, SpO2=94.0 %, Resp=15 B/min, Pain=0, Vee=10, Jones=2 9:52:04 Delivery device removed 9:53:12 150 mcg NTG (IC) given in lab by Canelo Harris via Intra-coronary. Ordered by Canelo Harris. 9:54:05 HR=41 bpm, CWLW=103/66 mmhg, SpO2=96.0 %, Resp=12 B/min, Pain=0, Vee=10, Jones=2 9:57:40 Wire removed 9:57:48 HR=38 bpm, JBGP=935/67 mmhg, SpO2=94.0 %, Resp=13 B/min, Pain=0, Vee=10, Jones=2 9:57:55 Catheter was removed 9:58:43 An injection in the Groin (right) was made through the SHEATH, FR6.5 PRELUDE 11CM FR 6.5. 10:00:04 HR=37 bpm, XHMJ=837/68 mmhg, SpO2=96.0 %, Resp=9 B/min, Pain=0, Vee=10, Jones=2 10:01:16 3 mg MORPHINE given in lab by Jose Calles, RN via Peripheral IV. Ordered by Canelo Harris . 10:02:34 Case End (Physician broke scrub) 10:02:54 Sheath removed 10:03:03 ANGIOSEAL, FR6 VIP FR 6 placement in the Fem Art (right) 10:03:33 Sterile dressing applied to site Radial Compression Device Used. 9 mLs of air placed in BAND, RADIAL COMPRESSION TR SHORT 24 24 CM. Affected 10:03:41 hand 99 % O2 saturation. 10:03:47 HR=35 bpm, LKLU=177/71 mmhg, SpO2=99.0 %, Resp=33 B/min, Pain=0, Vee=10, Jones=2 10:05:00 Patient moved to stretcher 10:05:19 60 mg EFFIENT given in lab by Jose Calles, RN via Oral. Ordered by Canelo Harris. 10:06:10 HR=35 bpm, YUEP=162/72 mmhg, SpO2=97.0 %, Resp=20 B/min, Pain=0, Vee=10, Jones=2 10:19:31 A Left Heart Cath was performed. End Study - Contrast Media Used In Study Contrast Total Opened (mL) Total Used (mL) Total Wasted (mL) Omnipaque 155 155 0 End Study - Maximum Contrast Load Max Contrast Load (mL) 525.5 End Study - Radiation Exposure Fluoro Time (minutes) 10.4 End Study - Patient Disposition Complications Transferred To Interventional Outcome No Early Intervention Specialist Holding successful
[2018-05-13] MEDS: Metoprolol Tartrate 25 MG Tablet PO SCH ×2 (10:54→20:38)
--- NOTE | 2018-05-13 11:33 | MA ---
cc: Canelo Harris MD, Cecil J PA DATE: 05/13/2018 PROCEDURES PERFORMED: 1. Radial arterial access. 2. Right femoral arterial access with Angio-Seal. 3. Left heart catheterization. 4. Left ventriculography. 5. Coronary angiography. 6. Stenting of the distal circumflex artery, stenting of the proximal left circumflex artery with drug-eluting stents. BRIEF HISTORY: Ji Angel is a 63-year-old man with known coronary artery disease. He had stenting of the left anterior descending artery 08/05/2012 with a 3.5 mm x 33 mm Xience stent and at the same time, stenting of the right coronary artery with a 3.0 mm x 38 mm Xience stent. He comes in now with unstable angina. DESCRIPTION OF PROCEDURE: The patient was brought to the cardiac catheterization lab in the fasting state. He was on IV heparin. The right groin and right wrist were prepped and draped in sterile fashion. Using 1% lidocaine for local anesthesia, I easily inserted a Terumo slender sheath in the right radial artery. I then introduced a [place] catheter. He had a bovine arch and I was not able to access the ascending aorta from the right wrist. I opted to go to the right groin since he had a good right groin pulse. Using 1% lidocaine for local anesthesia and a micropuncture set, the right femoral artery was accessed on one stick and changed up to a 6-Mauritanian sheath. Next LV pressure was measured using an angled pigtail catheter, followed by left ventriculography and then a pullback. After the LV gram, a pullback was performed. Coronary angiography was then performed using a left 4-Rose for the left coronary artery and a 3-DRC for the right coronary artery. After studying his films, I decided to intervene on the left circumflex artery. A 6-Mauritanian XB 3.5 guiding catheter was used to engage the left main. The patient was started on IV Angiomax. I used an ATW marker wire to measure of the proximal circumflex lesion and decided this would be covered by a 26 mm stent. The wire was then passed distally in the marginal branch. I then directly stented the distal circumflex at the junction of the posterolateral branch with a 3.0 mm x 15 mm [place] stent deployed at 16 atmospheres. There was some spasm in the proximal that was relieved with nitroglycerin. I then stented the proximal circumflex vessel utilizing a 3.0 mm x 26 mm Refugio stent at 16 atmospheres. This jailed an atrial branch and a very small first obtuse marginal branch. First obtuse marginal branch had ostial disease about 50% but remained patent. An excellent angiographic result was achieved from both stents. There is a 25% disease in the segment of the circumflex between the 2 stents, but I did not feel this was severe enough to bridge the gap with a third stent. The patient had chest pain that did not go completely away; felt to be due to stretch of the vessels since angiography demonstrated no thrombus or dissection and good results. Angiography was then obtained of the right femoral artery via the sheath, followed by an uncomplicated Angio-Seal closure. There were no complications. The patient is being loaded with 60 mg of Prasugrel and will continue 10 mg daily and continue aspirin daily. FINDINGS: 1. HEMODYNAMICS: Left ventricular pressure was 89/0 with end diastolic pressure of 6. Aortic pressure was 107/57 with mean of 78. There was no gradient during pullback. 2. LEFT VENTRICULOGRAPHY: Left ventriculography shows normal left ventricular function, estimated ejection fraction of 60%. 3. CORONARY ANGIOGRAPHY: Coronary circulation is right dominant. The left main coronary artery appears normal. Left anterior descending artery has about 30% proximal disease before a long stent in the mid LAD, which is widely patent. There is only mild 5%-10% irregularities in the mid to distal LAD section. The circumflex artery has a long stenosis proximally about 80% severity. First obtuse marginal branch is very small and has 50% ostial disease. More distally at the junction of the major posterolateral branch the circumflex artery has a 99% stenosis. The right coronary artery is dominant. This vessel demonstrates a proximal stent that may have 10%-20% narrowing. There was about 10%-20% mid irregularities in a 30% eccentric distal stenosis. The posterior descending and posterolateral branches have irregularities only. 4. RESULTS OF STENTING: Following stenting of the distal circumflex and proximal circumflex, a 0% residual stenosis had been achieved with DWIGHT 3 flow CONCLUSIONS: 1. The patient was noted to have moderate bradycardia into the 40s during most of the case. 2. Normal hemodynamics. 3. Preserved left ventricular systolic function. 4. Mild non-hemodynamically significant disease of the right coronary artery and left anterior descending artery with critical disease of the circumflex artery. 5. Successful stenting of the proximal and distal circumflex vessel using drug-eluting stents. PLAN: The patient will be continued on aspirin and Prasugrel; anticipate discharge home tomorrow if stable. MD LUCAS Ndiaye/mariella , 10:16 AM , 10:28 AM
--- NOTE | 2018-05-13 15:30 | P.PNIM ---
Subjective Interval history: 63-year-old male admitted overnight unstable angina. He underwent a heart catheterization today and had 2 stents placed. He states he is feeling far less chest pain and is interested in going home today but understands that he will need to wait until tomorrow per recommendation of cardiology. Physical Exam Vital signs: Vital Signs 05/12/18 15:55 05/12/18 15:56 05/12/18 16:32 Temperature Pulse Rate 53 L Respiratory Rate 17 Blood Pressure 170/88 H Pulse Oximetry 99 98 05/12/18 16:46 05/12/18 18:07 05/12/18 19:35 Temperature Pulse Rate 48 L 50 L 49 L Respiratory Rate 24 19 16 Blood Pressure 121/65 145/70 H 169/73 H Pulse Oximetry 98 98 05/12/18 21:05 05/13/18 00:00 05/13/18 04:00 Temperature 97.8 F 97.2 F L 97.4 F L Pulse Rate 48 L 46 L 39 L Respiratory Rate 18 18 18 Blood Pressure 169/90 H 149/83 H 136/75 Pulse Oximetry 95 98 99 05/13/18 08:00 05/13/18 10:21 05/13/18 12:33 Temperature Pulse Rate 42 L 42 L Respiratory Rate Blood Pressure Pulse Oximetry 100 05/13/18 13:00 05/13/18 14:00 Temperature Pulse Rate 43 L 38 L Respiratory Rate Blood Pressure Pulse Oximetry Intake & Output 05/12/18 05/13/18 05/13/18 18:59 06:59 18:59 Intake Total 1250 / 1250 Balance 1250 / 1250 Weight 74.843 kg 94.6 kg Intake: IV 1250 / 1250 Heparin/D5W 25,000 U/250 mL 25, 250 / 250 000 unit In 250 ml @ Per Protocol IV.CONT TITRATE PRN Rx #:[id number] NS Inj 1,000 ML @ 100 mls/hr IV 1000 / 1000 .CONT .Q10H JUVENAL Rx#:[id number] Other: Weight On Admission 74.8 kg Narrative: GENERAL: AAOx3, no acute distress SKIN: Warm and dry. No rashes HEAD: Atruamtic, normocephalic. EYES: No scleral icterus. No injection or drainage. ENT: Moist mucous membranes, patent nares, no erythema of oropharynx. NECK: Supple, trachea midline. No JVD or lymphadenopathy. Normal thyroid. CARDIOVASCULAR: Regular rate and rhythm. No murmurs, gallops, or rubs. RESPIRATORY: Breath sounds clear equal bilaterally. No crackles or wheezes. No accessory muscle use. GASTROINTESTINAL: Abdomen soft, non-tender, nondistended, normal active bowel sounds MUSCULOSKELETAL: No cyanosis, or edema. NEURO: CN II-XII grossly intact, no focal deficits, no slurring of speech Results - Labs CBC & Chem 7: 05/13/18 03:32 05/13/18 03:32 Laboratory Results - last 24 hr 05/12/18 05/12/18 05/12/18 16:19 16:19 16:19 WBC 7.3 RBC 5.05 Hgb 14.8 Hct 44.8 MCV 88.6 MCH 29.3 MCHC 33.1 RDW 12.8 Plt Count 230 MPV 8.2 Neut % (Auto) Lymph % (Auto) [place] % (Auto) Eos % (Auto) Baso % (Auto) Neut # (Auto) Lymph # (Auto) [place] # (Auto) Eos # (Auto) Baso # (Auto) WBC Differential Differential Comment PT 10.0 INR 1.0 APTT 27.4 Sodium 143 Potassium 3.8 Chloride 108 H Carbon Dioxide 27.8 Anion Gap 7 BUN 18 Creatinine 0.96 Estimated GFR 80 L Random Glucose 127 H Calcium 8.5 Total Creatine Kinase Troponin I Less than 0.02 L B-Natriuretic Peptide 05/12/18 05/12/18 05/12/18 16:19 22:50 22:50 WBC RBC Hgb Hct MCV MCH MCHC RDW Plt Count MPV Neut % (Auto) Lymph % (Auto) [place] % (Auto) Eos % (Auto) Baso % (Auto) Neut # (Auto) Lymph # (Auto) [place] # (Auto) Eos # (Auto) Baso # (Auto) WBC Differential Differential Comment PT 10.5 INR 1.0 APTT 57.6 H D Sodium Potassium Chloride Carbon Dioxide Anion Gap BUN Creatinine Estimated GFR Random Glucose Calcium Total Creatine Kinase 56 Troponin I Less than 0.02 L B-Natriuretic Peptide 32 05/13/18 05/13/18 05/13/18 03:32 03:32 03:32 WBC 7.7 RBC 4.96 Hgb 14.6 Hct 43.8 MCV 88.3 MCH 29.5 MCHC 33.4 RDW 13.4 Plt Count 211 MPV 8.5 Neut % (Auto) 57.8 Lymph % (Auto) 31.9 [place] % (Auto) 7.4 Eos % (Auto) 2.5 Baso % (Auto) 0.4 Neut # (Auto) 4.5 Lymph # (Auto) 2.5 [place] # (Auto) 0.6 Eos # (Auto) 0.2 Baso # (Auto) 0.0 WBC Differential . Differential Comment Auto diff final PT INR APTT 45.6 H D Sodium 143 Potassium 3.6 Chloride 108 H Carbon Dioxide 27.7 Anion Gap 7 BUN 16 Creatinine 0.90 Estimated GFR 86 L Random Glucose 96 Calcium 8.6 Total Creatine Kinase 56 Troponin I Less than 0.02 L B-Natriuretic Peptide - Imaging Impressions Chest X-Ray 05/12/18 16:13 CONCLUSION: Negative examination. Assessment and Plan - Plan Unstable angina EKG negative for ST segment elevations or depressions, troponins remain negative Patient taken for heart catheterization 05/13/18 and had 2 blocked vessels that required 2 cardiac stents Plan for discharge tomorrow Appreciate cardiology consult Discharge planning Plan for discharge tomorrow
[2018-05-13] MEDS ORDERED: Iohexol 350 MG/ML 50 ML Vial (for Cath Lab) IVCONTRAST ONE (16:29)
[2018-05-13] MEDS ORDERED: Iohexol 350 MG/ML 100 ML Vial (for Cath Lab) IVCONTRAST ONE (16:29)
[2018-05-14] MEDS: Levothyroxine 50 MCG Tablet PO SCH (05:07)
[2018-05-14 05:36] LABS: Baso % (Auto) 0.5 % (0.0-2.0); Eos # (Auto) 0.2 th/mm3 (0.0-0.4); Hematocrit 43.2 % (39.0-51.0); Hemoglobin 14.5 gm/dL (13.0-17.0); Lymph # (Auto) 1.7 th/mm3 (1.0-4.8); Lymph % (Auto) 21.1 % (9.0-44.0); Mean Corpuscular HGB Conc 33.5 % (32.0-36.0); Mean Corpuscular Hemoglobin 29.6 pg (27.0-34.0); Mean Corpuscular Volume 88.2 fL (80.0-100.0); Mono # (Auto) 0.7 th/mm3 (0.0-0.9); Neut # (Auto) 5.3 th/mm3 (1.8-7.7); Neut % (Auto) 67.4 % (16.0-70.0); Platelet Count 220 th/mm3 (150-450); Red Cell Distribution Width 13.1 % (11.6-17.2); White Blood Count 7.9 th/mm3 (4.0-11.0)
[2018-05-14 05:39] LABS: Hematocrit 43.1 % (39.0-51.0); Hemoglobin 14.5 gm/dL (13.0-17.0); Mean Corpuscular HGB Conc 33.6 % (32.0-36.0); Mean Corpuscular Hemoglobin 29.7 pg (27.0-34.0); Mean Corpuscular Volume 88.3 fL (80.0-100.0); Mean Platelet Volume 8.3 fL (7.0-11.0); Platelet Count 226 th/mm3 (150-450); Red Blood Count 4.89 mil/mm3 (4.50-5.90); Red Cell Distribution Width 13.3 % (11.6-17.2); White Blood Count 7.9 th/mm3 (4.0-11.0)
[2018-05-14 06:22] LABS: Calcium 8.8 mg/dL (8.5-10.1); Carbon Dioxide 32.1 meq/L (21.0-32.0); Potassium 4.6 meq/L (3.5-5.1)
[2018-05-14] MEDS: Sod Chloride 0.9% Inj 1,000 ML IV.CONT SCH (06:57)
[2018-05-14] MEDS: Metoprolol Tartrate 25 MG Tablet PO SCH (08:00)
[2018-05-14] MEDS ORDERED: amLODIPine 5 MG Tablet PO SCH (09:30)
--- NOTE | 2018-05-14 09:32 | P.DS ---
Date of admission: 05/12/18 19:57 Primary care physician: No Primary Care Physician Brief History from admission: 63-year-old male with past medical history significant for coronary artery disease status post stent placement 2, hyperlipidemia and hypothyroidism presents to the emergency department for evaluation of chest pain. The patient reports the chest pain started approximately 1-1/2 weeks ago while he was cutting his lawn. He states he had to stop multiple times secondary to chest pain and shortness of breath. He describes the pain as a pressure/burning sensation that is substernal and radiates across to his chest and down his right arm. He denies fever/chills. No nausea/vomiting/diarrhea no lateralizing signs/symptoms. DS: Diagnosis - Discharge Diagnosis (1) Coronary artery disease involving [place] heart with unstable angina pectoris Status: Acute (2) Hyperlipidemia Status: Acute DS: Medications - Discharge Medications Prescriptions: amlodipine 5 mg PO DAILY #30 tab aspirin [Bert Chewable Aspirin] 81 mg PO DAILY #90 tab ezetimibe [Zetia] 10 mg PO DAILY #90 tab famotidine [Pepcid] 20 mg PO DAILY #30 tab isosorbide mononitrate 30 mg PO DAILY #30 tab prasugrel [Effient] 10 mg PO DAILY #90 tab DS: Summary Hospital Course: Mr. Angel is a 63-year-old male with past medical history significant for coronary artery disease status post stent placement 2, hyperlipidemia and hypothyroidism who admitted to hospital for evaluation of chest pain. Patient underwent cardiac catheterization on 05/13/2018. Patient underwent successful stenting of the proximal and distal circumflex vessels using drug-eluting stents. Postprocedure patient continued to do well. In the morning on 2017, he was evaluated by cardiology as well. Patient complained of mild chest discomfort. Cardiology recommended adding isosorbide mononitrate. Patient was subsequently discharged home with outpatient follow-up. - Time Spent with Patient Total time spent providing and/or coordinating discharge services: Less than 30 minutes - Quality: VTE Deep Vein Thrombosis/Pulmonary Embolism Present on Admission: No Exam Vital signs: Vital Signs 05/13/18 10:21 05/13/18 12:33 05/13/18 13:00 Temperature Pulse Rate 42 L 43 L Respiratory Rate Blood Pressure Pulse Oximetry 100 05/13/18 14:00 05/13/18 15:00 05/13/18 16:00 Temperature 98.4 F Pulse Rate 38 L 52 L 38 L Respiratory Rate 18 Blood Pressure 138/98 H Pulse Oximetry 100 05/13/18 17:00 05/13/18 18:00 05/13/18 19:00 Temperature Pulse Rate 48 L 45 L 46 L Respiratory Rate Blood Pressure Pulse Oximetry 05/13/18 20:00 05/13/18 21:00 05/13/18 22:00 Temperature 98 F Pulse Rate 48 L 47 L 45 L Respiratory Rate 20 Blood Pressure 149/85 H Pulse Oximetry 97 05/13/18 23:00 05/14/18 00:00 05/14/18 01:00 Temperature 98.2 F Pulse Rate 48 L 45 L 49 L Respiratory Rate 18 Blood Pressure 149/85 H Pulse Oximetry 99 05/14/18 02:00 05/14/18 03:00 05/14/18 04:00 Temperature 97.8 F Pulse Rate 47 L 48 L 45 L Respiratory Rate 18 Blood Pressure 148/83 H Pulse Oximetry 98 05/14/18 05:00 05/14/18 05:46 05/14/18 07:00 Temperature Pulse Rate 39 L 42 L 44 L Respiratory Rate Blood Pressure Pulse Oximetry 05/14/18 07:43 05/14/18 08:00 05/14/18 09:00 Temperature 98.4 F Pulse Rate 44 L 41 L 46 L Respiratory Rate 18 Blood Pressure 177/90 H Pulse Oximetry 99 Intake & Output 05/13/18 05/14/18 05/14/18 18:59 06:59 18:59 Intake Total 1730 / 1730 1240 / 1240 Output Total 0 / 0 Balance 1730 / 1730 1240 / 1240 Weight 94.5 kg Intake: IV 1250 / 1250 1000 / 1000 Heparin/D5W 25,000 U/250 mL 25, 250 / 250 000 unit In 250 ml @ Per Protocol IV.CONT TITRATE PRN Rx #:[id number] NS Inj 1,000 ML @ 150 mls/hr IV 1000 / 1000 1000 / 1000 .CONT .Q6H40M JUVENAL Rx#:[id number] Oral 480 / 480 240 / 240 Output: Stool 0 / 0 Other: # Voids 2 2 Results Procedures completed during hospitalization: Cardiac catheterization 05/13/2018 1. The patient was noted to have moderate bradycardia into the 40s during most of the case. 2. Normal hemodynamics. 3. Preserved left ventricular systolic function. 4. Mild non-hemodynamically significant disease of the right coronary artery and left anterior descending artery with critical disease of the circumflex artery. 5. Successful stenting of the proximal and distal circumflex vessel using drug-eluting stents. Labs on day of discharge: Labs from last 24 hours 05/14/18 05/14/18 05/14/18 05:05 05:05 05:05 WBC 7.9 RBC 4.90 Hgb 14.5 Hct 43.2 MCV 88.2 MCH 29.6 MCHC 33.5 RDW 13.1 Plt Count 220 MPV 8.0 Neut % (Auto) 67.4 Lymph % (Auto) 21.1 [place] % (Auto) 9.0 H Eos % (Auto) 2.0 Baso % (Auto) 0.5 Neut # (Auto) 5.3 Lymph # (Auto) 1.7 [place] # (Auto) 0.7 Eos # (Auto) 0.2 Baso # (Auto) 0.0 WBC Differential . Differential Comment Auto diff final APTT 26.4 D Sodium 144 Potassium 4.6 D Chloride 107 Carbon Dioxide 32.1 H Anion Gap 5 BUN 11 Creatinine 0.96 Estimated GFR 80 L Random Glucose 98 Calcium 8.8 Total Creatine Kinase 92 05/14/18 05:05 WBC 7.9 RBC 4.89 Hgb 14.5 Hct 43.1 MCV 88.3 MCH 29.7 MCHC 33.6 RDW 13.3 Plt Count 226 MPV 8.3 Neut % (Auto) Lymph % (Auto) [place] % (Auto) Eos % (Auto) Baso % (Auto) Neut # (Auto) Lymph # (Auto) [place] # (Auto) Eos # (Auto) Baso # (Auto) WBC Differential Differential Comment APTT Sodium Potassium Chloride Carbon Dioxide Anion Gap BUN Creatinine Estimated GFR Random Glucose Calcium Total Creatine Kinase - Impressions ITS Impressions Chest X-Ray 05/12/18 16:13 CONCLUSION: Negative examination. Discharge Plan - Discharge Disposition Patient Disposition: 01 Discharge Home - Discharge Condition Condition: Fair - Discharge Order Discharge Orders: Discharge Order (Routine); Ordered 05/14/18 Ordered By: Rosi Stringer - Discharge Details Anticipated Discharge Date: 05/14/18 Discharge Comment: DO NOT Take Metoprolol. - Physicians Team Primary Care Provider: Primary Care Dirk,Kathleen Attending Provider: Rosi Stringer Other Providers: Canelo Harris MD
--- NOTE | 2018-05-14 09:38 | P.PNCA ---
Subjective Interval history: A little heartburn last night - no typical angina Physical Exam Vital signs: Vital Signs 05/13/18 10:21 05/13/18 12:33 05/13/18 13:00 Temperature Pulse Rate 42 L 43 L Respiratory Rate Blood Pressure Pulse Oximetry 100 05/13/18 14:00 05/13/18 15:00 05/13/18 16:00 Temperature 98.4 F Pulse Rate 38 L 52 L 38 L Respiratory Rate 18 Blood Pressure 138/98 H Pulse Oximetry 100 05/13/18 17:00 05/13/18 18:00 05/13/18 19:00 Temperature Pulse Rate 48 L 45 L 46 L Respiratory Rate Blood Pressure Pulse Oximetry 05/13/18 20:00 05/13/18 21:00 05/13/18 22:00 Temperature 98 F Pulse Rate 48 L 47 L 45 L Respiratory Rate 20 Blood Pressure 149/85 H Pulse Oximetry 97 05/13/18 23:00 05/14/18 00:00 05/14/18 01:00 Temperature 98.2 F Pulse Rate 48 L 45 L 49 L Respiratory Rate 18 Blood Pressure 149/85 H Pulse Oximetry 99 05/14/18 02:00 05/14/18 03:00 05/14/18 04:00 Temperature 97.8 F Pulse Rate 47 L 48 L 45 L Respiratory Rate 18 Blood Pressure 148/83 H Pulse Oximetry 98 05/14/18 05:00 05/14/18 05:46 05/14/18 07:00 Temperature Pulse Rate 39 L 42 L 44 L Respiratory Rate Blood Pressure Pulse Oximetry 05/14/18 07:43 05/14/18 08:00 05/14/18 09:00 Temperature 98.4 F Pulse Rate 44 L 41 L 46 L Respiratory Rate 18 Blood Pressure 177/90 H Pulse Oximetry 99 Intake & Output 05/13/18 05/14/18 05/14/18 18:59 06:59 18:59 Intake Total 1730 / 1730 1240 / 1240 Output Total 0 / 0 Balance 1730 / 1730 1240 / 1240 Weight 94.5 kg Intake: IV 1250 / 1250 1000 / 1000 Heparin/D5W 25,000 U/250 mL 25, 250 / 250 000 unit In 250 ml @ Per Protocol IV.CONT TITRATE PRN Rx #:[id number] NS Inj 1,000 ML @ 150 mls/hr IV 1000 / 1000 1000 / 1000 .CONT .Q6H40M JUVENAL Rx#:[id number] Oral 480 / 480 240 / 240 Output: Stool 0 / 0 Other: # Voids 2 2 Narrative: Alert Chest CTA CV S1S2 RRR Abd soft Ext no C/C/E. Right groing and right wrist OK Tele: sinus osman, asx Assessment and Plan - Assessment (1) Hyperlipidemia Code(s): E78.5 - Hyperlipidemia, unspecified Status: Acute Plan: Cont rosuva 40mg and add ezetemibe 10mg (2) Sinus bradycardia Code(s): R00.1 - Bradycardia, unspecified Status: Acute Plan: Asymptomatic (no pacemaker for that reason) (3) Stented coronary artery Code(s): Z95.5 - Presence of coronary angioplasty implant and graft Status: Acute Plan: Cont ASA 81mg, Prasugrel 10mg (4) Dyspepsia Code(s): R10.13 - Epigastric pain Status: Acute Plan: Add Pepcid (5) Coronary artery disease involving [place] heart with unstable angina pectoris Code(s): I25.110 - Atherosclerotic heart disease of [place] coronary artery with unstable angina pectoris Status: Acute Plan: Imdur 30mg, amlodipine 5mg - Plan No work for 2 weeks. OV within 2 weeks (5) Coronary artery disease involving [place] heart with unstable angina pectoris Qualifiers: Coronary Disease-Associated Artery/Lesion type: [place] artery Qualified Code( s): I25.110 - Atherosclerotic heart disease of [place] coronary artery with unstable angina pectoris
--- NOTE | 2018-05-14 11:57 | ECG ---
Date Performed: 05/14/2018 Time Performed: 05:17:30 PTAGE: 63 years EKG: Marked sinus bradycardia Poor R wave progression - probable normal variant Inferior T wave changes may be due to myocardial ischemia Abnormal ECG PREVIOUS TRACING : 05/13/2018 10.25 DOCTOR: Bradley Pablo Interpretating Date/Time 05/14/2018 11:55:55
--- NOTE | 2018-05-14 22:25 | ECG ---
Date Performed: 05/13/2018 Time Performed: 10:25:58 PTAGE: 63 years EKG: Marked sinus bradycardia Prolonged QT interval Inferior T wave changes may be due to myocar dial ischemia Abnormal ECG PREVIOUS TRACING : 05/13/2018 06.51 DOCTOR: Bradley Pablo Interpretating Date/Time 05/14/2018 22:18:45
--- NOTE | 2018-05-14 22:32 | ECG ---
Date Performed: 05/13/2018 Time Performed: 06:51:12 PTAGE: 63 years EKG: Marked sinus bradycardia. Inferior ST-T changes are nonspecific Abnormal ECG NO PREVIOUS TRACING DOCTOR: Bradley Pablo Interpretating Date/Time 05/14/2018 22:23:28
== END 2018-05-14 11:04 | disposition home or self-care (01) ==
LOC: NEPC 13:43 → NEDA 18:39 → INTOOBSV 18:39 → NEDA 20:51 → N04 21:03 → HCIS 05-13 10:48
PROVIDERS: ADMIT Hospitalist; ATTEND Hospitalist